=== PATIENT | male | born 1975 | race Caucasian/White ===

== ENCOUNTER 2016-09-15 16:09 | Emergency (ER) | payer OTHER ==
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
[2016-09-15 16:18] VITALS: BP 140/79; PULSE 90; TEMP 97.7; BMI 30.2
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
[2016-09-15] MEDS ORDERED: IBUPROFEN 600 MG TABLET (FP) PO ONE ×2 (17:17→17:21)
== END 2016-09-15 18:04 | disposition home or self-care (01) ==
LOC: JERFT 16:09
DX: S39.012A Strain of muscle, fascia and tendon of lower back, initial encounter (principal); S80.02XA Contusion of left knee, initial encounter; V43.52XA Car driver injured in collision with other type car in traffic accident, initial encounter; Y92.414 Local residential or business street as the place of occurrence of the external cause; Y93.89 Activity, other specified; F17.210 Nicotine dependence, cigarettes, uncomplicated
CPT/HCPCS: 99281-25